=== PATIENT | female | born 2000 | race Caucasian/White ===

== ENCOUNTER 2020-09-25 10:27 | Emergency (ER) | payer OTHER, SELFPAY | END 2020-09-25 11:10 | disposition home or self-care (01) | LOC: CSHERS 10:27 | DX: O98.811 Other maternal infectious and parasitic diseases complicating pregnancy, first trimester (principal); B37.3 Candidiasis of vulva and vagina; O99.512 Diseases of the respiratory system complicating pregnancy, second trimester; J45.909 Unspecified asthma, uncomplicated; Z3A.21 21 weeks gestation of pregnancy; Z87.74 Personal history of (corrected) congenital malformations of heart and circulatory system | CPT/HCPCS: 99283 ==

== ENCOUNTER 2020-10-29 22:50 | Day surgery (SDC) | payer OTHER ==
[2020-10-30] MEDS ORDERED: hydrALAZINE 20 MG/ML VIAL SLOW IVP PRN (00:33)
== END 2020-10-30 00:50 | disposition home or self-care (01) ==
LOC: CSHLD/OP 22:50
PROVIDERS: ATTEND Family Medicine
DX: O47.02 False labor before 37 completed weeks of gestation, second trimester (principal); O99.891 Other specified diseases and conditions complicating pregnancy; R10.2 Pelvic and perineal pain; R10.30 Lower abdominal pain, unspecified; O99.412 Diseases of the circulatory system complicating pregnancy, second trimester; Q24.8 Other specified congenital malformations of heart; Z3A.26 26 weeks gestation of pregnancy
CPT/HCPCS: 99282

== ENCOUNTER 2020-11-17 01:24 | Day surgery (SDC) | payer OTHER ==
[2020-11-17 01:44] VITALS: BMI 25.7
[2020-11-17] MEDS ORDERED: hydrALAZINE 20 MG/ML VIAL SLOW IVP PRN ×2 (01:59→07:53)
== END 2020-11-17 03:45 | disposition home or self-care (01) ==
LOC: CSHLD/OP 01:24
PROVIDERS: ATTEND Family Medicine
DX: O36.8130 Decreased fetal movements, third trimester, not applicable or unspecified (principal); Z3A.29 29 weeks gestation of pregnancy
CPT/HCPCS: 76815; 99282

== ENCOUNTER 2020-11-22 18:11 | Day surgery (SDC) | payer OTHER ==
[2020-11-22] MEDS ORDERED: hydrALAZINE 20 MG/ML VIAL SLOW IVP PRN (18:41)
[2020-11-22 19:26] VITALS: BMI 25.7
[2020-11-22] MEDS ORDERED: Acetaminophen 500 MG TAB PO SCH (19:45)
== END 2020-11-22 20:30 | disposition home or self-care (01) ==
LOC: CSHLD/OP 18:11
PROVIDERS: ATTEND Family Medicine
DX: O99.891 Other specified diseases and conditions complicating pregnancy (principal); R10.9 Unspecified abdominal pain; M54.9 Dorsalgia, unspecified; Z3A.30 30 weeks gestation of pregnancy
CPT/HCPCS: 99283

== ENCOUNTER 2021-06-10 21:12 | Emergency (ER) | payer OTHER ==
[2021-06-10] MEDS ORDERED: Acetaminophen 500 MG TAB ONE (21:36)
[2021-06-10 22:34] LABS: SARS-CoV-2 NAA Rapid Test Not Detected (NotDetected)
== END 2021-06-10 23:30 | disposition home or self-care (01) ==
LOC: CSHERS 21:12
DX: J10.1 Influenza due to other identified influenza virus with other respiratory manifestations (principal); Z20.822 Contact with and (suspected) exposure to COVID-19; J45.909 Unspecified asthma, uncomplicated
CPT/HCPCS: 0240U; 87081; 87430; 99284

== ENCOUNTER 2021-06-14 01:01 | Emergency (ER) | payer OTHER | END 2021-06-14 01:29 | disposition home or self-care (01) | LOC: CSHERS 01:01 | DX: L50.9 Urticaria, unspecified (principal); J45.909 Unspecified asthma, uncomplicated; F17.290 Nicotine dependence, other tobacco product, uncomplicated | CPT/HCPCS: 99282 ==